=== PATIENT | male | born 1975 | race Two or more races ===

== ENCOUNTER 2017-07-28 09:06 | Outpatient (CLI) | payer OTHER | END 2017-07-28 11:00 | disposition home or self-care (01) | LOC: NUCLEAR 09:06 | DX: I11.9 Hypertensive heart disease without heart failure (principal) ==

== ENCOUNTER 2018-06-17 06:49 | Day surgery (SDC) | payer OTHER ==
[~2018-06-17 06:49] MED LIST: LOSARTAN-HCTZ1 EAC2 PO
== END 2018-06-17 13:45 | disposition home or self-care (01) ==
LOC: CIR.AMB 06:49
DX: M75.42 Impingement syndrome of left shoulder (principal); M19.012 Primary osteoarthritis, left shoulder

== ENCOUNTER 2020-08-07 10:11 | Day surgery (SDC) | payer OTHER | END 2020-08-07 14:50 | disposition home or self-care (01) | LOC: AMB-ENDOS 10:11 | PROVIDERS: ATTEND Surgery | DX: K62.89 Other specified diseases of anus and rectum (principal); Z20.822 Contact with and (suspected) exposure to COVID-19 ==